=== PATIENT | female | born 1950 ===

== ENCOUNTER 2024-01-28 10:15 | Inpatient (IN) | payer OTHER ==
[~2024-01-28] VITALS: Ht 160 cm; Wt 69.4 kg
[2024-01-28] MEDS ORDERED: TOPROL XL50 M1 (12:01)
[2024-01-28] MEDS ORDERED: CALTRATE 600 +1 EAC1 (12:01)
[2024-01-28] MEDS ORDERED: OSTERA TABLET1 EACH (12:01)
[2024-01-28] MEDS ORDERED: PRAVASTATIN SOD20 MG (12:02)
[2024-01-28] MEDS ORDERED: IRBESARTAN75 MG (12:02)
[2024-01-28] MEDS ORDERED: PREVACID15 M1 (12:02)
[2024-01-28] MEDS ORDERED: ALENDRONATE SOD35 MG (12:03)
[2024-02-04] MEDS ORDERED: CEFOXITIN SODIUM 1,000 MG VIAL IV ONE (08:45)
[2024-02-04] MEDS ORDERED: ACETAMINOPHEN 500 MG GEL..CAP PO SCH (09:34)
[2024-02-04] MEDS ORDERED: MORPHINE SULFATE 4 MG/ML CARTRIDGE IV PRN (09:45)
[2024-02-04] MEDS ORDERED: MORPHINE SULFATE 4 MG/ML VIAL IV ONE (10:10)
[2024-02-04 16:00] VITALS: BP 108/74; O2SAT 96
[2024-02-04] MEDS ORDERED: ENOXAPARIN SODIUM 40 MG/0.4 ML SYRINGE SUBCUTANEO SCH (17:00)
[2024-02-04] MEDS ORDERED: METRONIDAZOLE/SODIUM CHLORIDE 500 MG/100 ML PIGGYBACK IV SCH (21:00)
[2024-02-05] VITALS: BP 110/53; O2SAT 96
[2024-02-05 08:00] VITALS: BP 95/55; O2SAT 96
[2024-02-05] MEDS ORDERED: CEFTRIAXONE SODIUM 2,000 MG VIAL IV SCH (09:00)
[2024-02-05 15:00] VITALS: BP 128/60; O2SAT 97
[2024-02-06 01:01] VITALS: BP 132/60; O2SAT 97
[2024-02-06 08:00] VITALS: BP 123/60; O2SAT 100
== END 2024-02-06 12:09 | disposition home or self-care (01) | DRG 331 ==
LOC: SURH 02-04 05:28 → O/R 02-04 05:28 → SURH 02-04 07:00
PROVIDERS: ADMIT Surgery; ATTEND Surgery
PROC: 0DTF4ZZ Resection of Right Large Intestine, Percutaneous Endoscopic Approach (ICD-10-PCS; principal; 2024-02-04 07:00)
DX: C18.0 Malignant neoplasm of cecum (principal); K63.5 Polyp of colon; R59.0 Localized enlarged lymph nodes